=== PATIENT | male | born 1990 | race Two or more races ===

== ENCOUNTER 2024-04-25 18:02 | Inpatient (IN) | payer OTHER, MEDICAID ==
[~2024-04-25] VITALS: Ht 177.8 cm; Wt 75.0 kg
[2024-04-25 21:34] LABS: Chloride 100 mmol/L (98-107); Potassium 3.7 mmol/L (3.5-5.1); Sodium 135 mmol/L (136-145)
[2024-04-25 21:35] LABS: Anion Gap 8 (5-15); Carbon Dioxide 27 mmol/L (20-30)
[2024-04-25 21:36] LABS: Calcium 9.7 mg/dL (8.7-10.4)
[2024-04-25 21:39] LABS: Basophils # (auto) 0.1 10 ^3/uL (0-0.2); Hemoglobin 12.8 g/dL (13.5-17.5); Lymphocytes # (auto) 1.3 10 ^3/uL (0.4-5.4)
[2024-04-25 21:40] LABS: Glucose 93 mg/dL (74-106)
[2024-04-25 21:41] LABS: BUN/Creatinine Ratio 7.7 (10.0-20.0); Basophils % (auto) 0.5 % (0.0-2.0); Blood Urea Nitrogen 5 mg/dL (9-23); Eosinophils # (auto) 0.2 10 ^3/uL (0-0.8); Eosinophils % (auto) 1.3 % (0.0-7.0); Lymphocytes % (auto) 10.2 % (10.0-50.0); Mean Corpuscular Hemoglobin 29.8 pg (28.0-32.0); Mean Corpuscular Hgb Conc. 34.7 g/dL (32.0-36.0); Mean Corpuscular Volume 85.8 fL (80.0-100.0); Monocytes # (auto) 0.9 10 ^3/uL (0-1.3); Monocytes % (auto) 7.3 % (0.0-12.0); Neutrophils # (auto) 9.9 10 ^3/uL (1.6-8.6); Neutrophils % (auto) 80.7 % (37.0-80.0); Platelet Count (auto) 476 10^3/uL (140-450); Red Blood Cells 4.31 10^6/uL (4.5-5.90); Red Cell Distribution Width 13.4 % (11.8-14.3); White Blood Cell 12.2 10^3/uL (4.4-10.8)
[2024-04-25] MEDS: cefTRIAXone SOD 1,000 MG VL IM ONE (21:42)
[2024-04-25 21:46] LABS: Urine Bacteria MOD /hpf (None Seen); Urine Blood Negative /uL (Negative); Urine Clarity Clear (Clear); Urine Color Colorless (Yellow); Urine Protein, UAD Negative (Negative); Urine Specific Gravity 1.007 (1.001-1.035); Urine Urobilinogen Normal (Negative); Urine WBC 27 /hpf (0 - 3); Urine pH 6.5 (5.0-9.0)
[2024-04-25] MEDS: SODIUM CHLORIDE 0.9% 1,000 ML IV ONE (22:45)
[2024-04-25] MEDS: ONDANSETRON HCL 4 MG/2 ML VIAL IV ONE (22:57)
[2024-04-25] MEDS: MORPHINE SULFATE INJ 2 MG/ml SYRG IV ONE (22:58)
[2024-04-25] MEDS: CLINDAMYCIN 600MG IV 50 ML IV ONE (23:08)
[2024-04-25] MEDS ORDERED: ONDANSETRON HCL 4 MG/2 ML VIAL IV PRN (23:45)
[2024-04-25] MEDS ORDERED: NITROGLYCERIN 0.4 MG SL TAB SL PRN (23:45)
[2024-04-25] MEDS ORDERED: DOCUSATE SOD 100 MG CAP PO PRN (23:45)
[2024-04-25] MEDS ORDERED: MORPHINE SULFATE INJ 2 MG/ml SYRG IV PRN ×2 (23:45)
[2024-04-25] MEDS ORDERED: VANCOMYCIN PER PHARMACY 0 MG IV SCH (23:45)
[2024-04-25] MEDS: SODIUM CHLORIDE 0.9% 1,000 ML IV SCH (23:45)
[2024-04-26] VITALS (7 sets, daily range): BP systolic 116–139; BP diastolic 51–87; PULSE 73–111; RESP 16–24; TEMP 98–98.7; O2SAT 97–100
[2024-04-26] MEDS: SODIUM CHLORIDE 0.9% 1,000 ML IV ONE (00:05)
[2024-04-26] MEDS: ACETAMINOPHEN 325 MG TAB PO PRN (00:46)
[2024-04-26] MEDS: VANCOMYCIN 1GM/200ML 200 ML IV ONE ×2 (01:00→04:47)
[2024-04-26 06:36] LABS: Basophils # (auto) 0 10 ^3/uL (0-0.2); Basophils % (auto) 0.1 % (0.0-2.0); Eosinophils # (auto) 0.1 10 ^3/uL (0-0.8); Hematocrit 32.7 % (41.0-53.0); Hemoglobin 11.1 g/dL (13.5-17.5); Lymphocytes # (auto) 1.6 10 ^3/uL (0.4-5.4); Lymphocytes % (auto) 13.2 % (10.0-50.0); Mean Corpuscular Hemoglobin 29.4 pg (28.0-32.0); Mean Corpuscular Hgb Conc. 33.9 g/dL (32.0-36.0); Mean Corpuscular Volume 86.7 fL (80.0-100.0); Monocytes # (auto) 1.4 10 ^3/uL (0-1.3); Monocytes % (auto) 10.8 % (0.0-12.0); Neutrophils # (auto) 9.4 10 ^3/uL (1.6-8.6); Neutrophils % (auto) 74.9 % (37.0-80.0); Platelet Count (auto) 431 10^3/uL (140-450); Red Blood Cells 3.78 10^6/uL (4.5-5.90); Red Cell Distribution Width 13.3 % (11.8-14.3); White Blood Cell 12.5 10^3/uL (4.4-10.8)
[2024-04-26 06:51] LABS: Alanine Aminotransferase 16 U/L (7-40); Albumin 4.1 g/dL (3.2-4.8); Alkaline Phosphatase 58 U/L (46-116); Anion Gap 9 (5-15); Aspartate Aminotransferase 19 U/L (13-40); Carbon Dioxide 25 mmol/L (20-30); Chloride 105 mmol/L (98-107); Glucose 108 mg/dL (74-106); Potassium 3.5 mmol/L (3.5-5.1); Sodium 139 mmol/L (136-145)
[2024-04-26 06:52] LABS: Bilirubin, Total 0.5 mg/dL (0.2-1.0); Total Protein 7.2 g/dL (5.7-8.2)
[2024-04-26 07:01] LABS: BUN/Creatinine Ratio 9.1 (10.0-20.0); Blood Urea Nitrogen < 5 mg/dL (9-23)
[2024-04-26] MEDS ORDERED: HYDR-4609 (07:03)
[2024-04-26] MEDS ORDERED: NAP500T PO (07:03)
[2024-04-26] MEDS: ASCORBIC ACID 500 MG TAB PO SCH (09:37)
[2024-04-26] MEDS: ZINC SULFATE 220mg CAP or TAB PO SCH (09:37)
[2024-04-26] MEDS: ENOXAPARIN SOD 40 MG/0.4 ML SYRINGE SC SCH (09:38)
[2024-04-26] MEDS: HYDROcodone-ACET 5/325MG TAB PO PRN (09:39)
[2024-04-26] MEDS: VANCOMYCIN 1GM/200ML 200 ML IV SCH (12:48)
[2024-04-26] MEDS: cefTRIAXone 1GM/50ML D5W 50 ML IV SCH (16:40)
[2024-04-26] MEDS ORDERED: cefTRIAXone 1GM/50ML D5W 50 ML IV SCH (21:00)
[2024-04-27 05:00] VITALS: BP_SYST 109; BP_SYST 130; BP_DIAS 60; BP_DIAS 68; PULSE 74; PULSE 77; RESP 20; RESP 21; TEMP 97.9; TEMP 98.3; O2SAT 95; O2SAT 98
[2024-04-27 06:52] LABS: Basophils # (auto) 0 10 ^3/uL (0-0.2); Basophils % (auto) 0.5 % (0.0-2.0); Eosinophils # (auto) 0.4 10 ^3/uL (0-0.8); Eosinophils % (auto) 6.3 % (0.0-7.0); Hemoglobin 11.3 g/dL (13.5-17.5); Lymphocytes # (auto) 1.5 10 ^3/uL (0.4-5.4); Lymphocytes % (auto) 23.3 % (10.0-50.0); Mean Corpuscular Hemoglobin 29.2 pg (28.0-32.0); Mean Corpuscular Hgb Conc. 33.1 g/dL (32.0-36.0); Mean Corpuscular Volume 88.2 fL (80.0-100.0); Monocytes # (auto) 0.7 10 ^3/uL (0-1.3); Monocytes % (auto) 10.3 % (0.0-12.0); Neutrophils # (auto) 3.9 10 ^3/uL (1.6-8.6); Neutrophils % (auto) 59.6 % (37.0-80.0); Nucleated Red Blood Cells % 0.1 %; Platelet Count (auto) 406 10^3/uL (140-450); Red Blood Cells 3.85 10^6/uL (4.5-5.90); Red Cell Distribution Width 13.5 % (11.8-14.3); White Blood Cell 6.5 10^3/uL (4.4-10.8)
[2024-04-27 07:41] LABS: Chloride 107 mmol/L (98-107); Potassium 3.6 mmol/L (3.5-5.1); Sodium 139 mmol/L (136-145)
[2024-04-27 07:42] LABS: Anion Gap 10 (5-15); Carbon Dioxide 22 mmol/L (20-30)
[2024-04-27 07:43] LABS: Calcium 9.2 mg/dL (8.7-10.4)
[2024-04-27 07:47] LABS: Glucose 92 mg/dL (74-106)
[2024-04-27 07:48] LABS: BUN/Creatinine Ratio 9.4 (10.0-20.0); Blood Urea Nitrogen < 5 mg/dL (9-23)
[2024-04-27] MEDS ORDERED: LEVO500T91 PO (08:59)
[2024-04-27 09:00] VITALS: BP 112/55; PULSE 79; RESP 20; TEMP 97.9; O2SAT 99
[2024-04-27] MEDS: levoFLOXacin 500 MG TAB PO ONE (11:20)
[2024-04-27 11:38] VITALS: BP 112/55; PULSE 79; RESP 20; TEMP 97.9; O2SAT 99
== END 2024-04-27 12:40 | disposition home or self-care (01) | DRG 872 ==
LOC: ER 18:02 → OVERFLOW 23:43 → WEST WING 04-26 03:06
PROVIDERS: ADMIT Nurse Practitioner Family; ATTEND Nurse Practitioner Acute Care
DX: A41.9 Sepsis, unspecified organism (principal); L03.115 Cellulitis of right lower limb; E87.1 Hypo-osmolality and hyponatremia; N39.0 Urinary tract infection, site not specified; D75.839 Thrombocytosis, unspecified; Z91.018 Allergy to other foods; Z99.3 Dependence on wheelchair; Z79.899 Other long term (current) drug therapy
CPT/HCPCS: 36415; 73610; 80048; 80053; 80202; 81001; 83605; 85025; 87040; 87086; 87088; 87186; 87205; 96372; 99291; G0378; J0696; J2405; J3490